=== PATIENT | male | born 1955 | race Caucasian/White ===

== ENCOUNTER 2018-09-25 16:57 | Emergency (ER) | payer SELFPAY ==
[2018-09-25 17:11] VITALS: BMI 26.6
[2018-09-25] MEDS ORDERED: Lidocaine 5% Patch TD STA (17:25)
--- NOTE | 2018-09-25 17:37 | ED PDOC ---
Arrival/HPI - General Chief Complaint: Weakness/Neurological Deficit Historian: Patient - History of Present Illness Narrative History of Present Illness (Text): 09/25/18 17:31 A 63 year old male, whose past medical history includes hypertension and forge tfulness, presents to the ED complaining of left side arm and shoulder pain for the past 2 weeks s/p fall. Patient reports he had paraspinal tenderness and limited range of motion of left upper extremity due to fall; he visited [facility] [place] where head CT was performed and found unremarkable. Patient experienced continued pain so he went to his PMD, who told him his symptoms were likely due to strokes. Patient admits he is not complaint with taking any of his home pain medications and he continues to experience pain on his left upper extremity. Patient denies any fevers, chills, headache, dizziness, chest pain, shortness of breath, dyspnea on exertion, cough, abdominal pain, nausea, vomiting, diarrhea, back pain, neck pain, urinary/bowel changes, or any other complaints. Time/Duration: > week Symptom Onset: Gradual Symptom Course: Unchanged Activities at Onset: Light Context: Home Past Medical History - Provider Review Nursing Documentation Reviewed: Yes - Cardiac Hx Hypertension: Yes - Neurological HX Cerebrovascular Accident: Yes - Psychiatric Hx Substance Use: No Family/Social History - Physician Review Nursing Documentation Reviewed: Yes Family/Social History: No Known Family HX Smoking Status: Never Smoked Hx Alcohol Use: No Hx Substance Use: No Allergies/Home Meds Allergies/Adverse Reactions: Allergies No Known Allergies Allergy (Verified 09/25/18 17:11) Review of Systems - Physician Review All systems were reviewed & negative as marked: Yes - Review of Systems Constitutional: absent: Fevers Eyes: absent: Vision Changes ENT: absent: Hearing Changes Respiratory: absent: SOB Cardiovascular: absent: Chest Pain Gastrointestinal: absent: Abdominal Pain Genitourinary Male: absent: Dysuria Musculoskeletal: Other (Left arm and shoulder pain) Skin: absent: Rash Neurological: absent: Headache Endocrine: absent: Diaphoresis Hemo/Lymphatic: absent: Adenopathy Psychiatric: absent: Anxiety, Depression Physical Exam Vital Signs Reviewed: Yes Vital Signs Temp Pulse Resp BP Pulse Ox 09/25/18 17:11 97.8 F 75 18 162/96 H 98 Temperature: Afebrile Blood Pressure: Hypertensive Pulse: Regular Respiratory Rate: Normal Appearance: Positive for: Well-Appearing, Non-Toxic, Comfortable Pain Distress: Mild Mental Status: Positive for: Alert and Oriented X 3 - Systems Exam Head: Present: Atraumatic, Normocephalic Pupils: Present: PERRL Extroacular Muscles: Present: EOMI Conjunctiva: Present: Normal Neck: Present: Normal Range of Motion, Paraspinal Tenderness (Left side paraspinal cervical tenderness ) Upper Extremity: Present: NORMAL PULSES (Strong radial pulse), Neurovascularly Intact, Capillary Refill < 2s, Other (Pain with abduction) Lower Extremity: Present: Other (Healed surgical scar on left medial thigh) Neurological: Present: CN II-XII Intact, Motor Func Grossly Intact, Other ( Strength 5/5 x4) Medical Decision Making ED Course and Treatment: 09/25/18 17:50 Impression: A 63 year old male who presents to the ED complaining of left arm and shoulder pain. Plan: -- Labs -- Valium -- Toradol -- Lidoderm -- IV Fluids -- Urinalysis -- Reassess and disposition Prior Visits: Notes and results from previous visits were reviewed. Patient was last seen in the emergency department on Progress Notes: - EKG Interpretation EKG Interpretation (Text): 09/25/18 17:52 EKG: NSR @ [address] abnormalities. No QT prolongations. - Medication Orders Current Medication Orders: Diazepam (Valium) 2 mg PO ONCE ONE; Protocol Stop: 09/25/18 17:30 Ketorolac Tromethamine (Toradol) 30 mg IVP STAT STA Stop: 09/25/18 17:26 Lidocaine (Lidoderm) 1 ea TD STAT STA Stop: 09/25/18 17:26 - Scribe Statement The provider has reviewed the documentation as recorded by the Tl Newby Provider Scribe Attestation: All medical record entries made by the Scribe were at my direction and personally dictated by me. I have reviewed the chart and agree that the record accurately reflects my personal performance of the history, physical exam, medical decision making, and the department course for this patient. I have also personally directed, reviewed, and agree with the discharge instructions and disposition. Disposition/Present on Arrival - Present on Arrival Any Indicators Present on Arrival: No History of DVT/PE: No History of Uncontrolled Diabetes: No Urinary Catheter: No History of Decub. Ulcer: No History Surgical Site Infection Following: None - Disposition Have Diagnosis and Disposition been Completed?: Yes Diagnosis: Hypertensive urgency Disposition: HOME/ ROUTINE Disposition Time: 18:57 Patient Plan: Discharge Discharge Instructions (ExitCare): High Blood Pressure (DC), Medicines for High Blood Pressure Print Language: AMHARIC Additional Instructions: All medical record entries made by the Scribe were at my direction and personally dictated by me. I have reviewed the chart and agree that the record accurately reflects my personal performance of the history, physical exam, medical decision making, and the department course for this patient. I have also personally directed, reviewed, and agree with the discharge instructions and disposition. Please follow up with your PCP Referrals: Kelly Locke MD [Medical Doctor] - Follow up with primary [facility] at [facility] [Outside] - Follow up with primary Forms: [facility] ([place]ian), WORK NOTE
[2018-09-25 17:39] LABS: BASO # 0.02 K/mm3 (0.0-2.0); BASO % 0.3 % (0.0-3.0); EOS # 0.1 (0.0-0.7); HEMOGLOBIN 13.6 g/dL (14.0-18.0); LYMPH # 2.4 (1.2-3.4); LYMPH % 30.9 % (22.0-35.0); MEAN CELL VOLUME 89.8 fl (80.0-105.0); MEAN CORPUSCULAR HEMOGLOBIN 30.8 pg (25.0-35.0); MEAN CORPUSCULAR HGB CONC 34.3 g/dl (31.0-37.0); MEAN PLATELET VOLUME 9.3 fl (7.0-11.0); MONO # 0.9 (0.1-0.6); MONO % 11.6 % (1.0-6.0); RBC 4.41 10^6/uL (3.5-6.1); RED CELL DISTRIBUTION WIDTH 12.1 % (11.5-14.5); WHITE BLOOD COUNT 7.9 10^3/uL (4.5-11.0)
[2018-09-25 17:45] LABS: ALB/GLOB RATIO 1.4 (1.1-1.8); ALBUMIN 4.5 g/dL (3.0-4.8); ALT/SGPT 30 U/L (7-56); AST/SGOT 37 U/L (17-59); BLOOD UREA NITROGEN 22 mg/dL (7-21); CALCIUM 9.3 mg/dL (8.4-10.5); GFR NON-AFRICAN AMERICAN > 60
[2018-09-25 17:56] LABS: TROPONIN I < 0.01 ng/mL
[2018-09-25 18:15] LABS: URINE APPEARANCE CLEAR (CLEAR); URINE BILIRUBIN NEGATIVE (NEGATIVE); URINE BLOOD NEGATIVE (NEGATIVE); URINE COLOR YELLOW (YELLOW); URINE GLUCOSE (UA) NEGATIVE (NEGATIVE); URINE LEUKOCYTE ESTERASE NEGATIVE Leu/uL (NEGATIVE); URINE PROTEIN NEGATIVE mg/dL (<30 mg/dL); URINE UROBILINOGEN 0.2 E.U./dL (<1 E.U./dL)
[2018-09-25 18:52] VITALS: BP 124/74
[2018-09-25 19:09] VITALS: PULSE 69; RESP 19; TEMP 97.9; O2SAT 99
--- NOTE | 2018-09-26 11:46 | CARD ---
APPROVED REPORT Date of service: 09/25/2018 EKG Measurement Heart [id number] <Conclusion> Normal sinus rhythm Normal ECG
== END 2018-09-25 19:09 | disposition home or self-care (01) ==
LOC: ED 16:57
DX: I16.0 Hypertensive urgency (principal); I10 Essential (primary) hypertension; Z86.73 Personal history of transient ischemic attack (TIA), and cerebral infarction without residual deficits
CPT/HCPCS: 80053; 81003; 83880; 84484; 85025; 93005; 96374; 99285; J1885